=== PATIENT | female | born 1975 | race African-American/Black ===

== ENCOUNTER 2016-03-15 11:28 | Emergency (ER) | payer MEDICAID, SELFPAY ==
[~2016-03-15] VITALS: Ht 160 cm; Wt 81.6 kg
[~2016-03-15 11:28] MED LIST: AMOXICILLIN500 MG ORAL; IBUPROFEN600 MG ORAL; MAGNESIUM CITR296 M1 PO
[2016-03-15] MEDS ORDERED: NKM (11:36)
[2016-03-15 11:45] VITALS: BP 129/82
[2016-03-15] MEDS ORDERED: Methocarbamol 750mg tab ORAL ONE (12:45)
[2016-03-15] MEDS ORDERED: ROBAXIN-750750 MG PO (12:47)
[2016-03-15] MEDS ORDERED: IBUPROFEN600 MG ORAL (12:47)
[2016-03-15 12:57] LABS: APPEARANCE,URINE SLIGHTLY CLOUDY; KETONES,URINE 2+ (NEGATIVE); LEUKOCYTE ESTERASE ,URINE 2+ (NEGATIVE); NITRITE,URINE NEGATIVE (NEGATIVE); PH,URINE 6.5 (4.5-8.0); PROTEIN,URINE NEGATIVE (NEGATIVE); UROBILINOGEN,URINE NORMAL MG/DL (0.0-1.0)
--- NOTE | 2016-03-15 13:07 | Emergency Room Report ---
History of Present Illness General Chief Complaint: Lower Back Pain or Injury Source: Patient Present Illness HPI 40 YO F with right lower back pain since last night. Pain is constant, shrap, 5/ 10, non radiating. No assoc fever/chills, urinary complaints, abd pain, nausea/ vomiting, diarrhea, sick contacts. No history of renal stones. S/p cholecystectomy in distant past. No other PMHx. Took OTC meds with relief. Allergies: Coded Allergies: NO KNOWN DRUG ALLERGIES (Unverified Allergy, Unknown, 04/08/14) Patient History Past Medical History: none Past Surgical History: david Pertinent Family History: none Social History: Denies: alcohol use, drug use, smoking Last Menstrual Period: 02/13/17 Now: No Immunizations: UTD Reviewed Nursing Documentation: PMH: Agreed, PSxH: Agreed Nursing Documentation-PMH Past Medical History: No History, Except For Hx Cardiac Problems: Yes - murmur Review of Systems All Other Systems: negative except mentioned in HPI Physical Exam Vital Signs Date Time Temp Pulse Resp B/P Pulse Ox O2 Delivery O2 Flow Rate FiO2 03/15/16 11:29 98.1 63 18 127/76 98 Room Air Sp02 EP Interpretation: reviewed, normal General Appearance: normal inspection, well appearing, no apparent distress, alert Head: normocephalic, atraumatic ENT: normal ENT inspection, hearing grossly normal, normal voice Neck: normal inspection, full range of motion, supple, no bony tend Respiratory: normal inspection, lungs clear, normal breath sounds, no respiratory distress, no retraction, no wheezing Cardiovascular #1: regular rate, rhythm, no edema Gastrointestinal: normal inspection, normal bowel sounds, non tender, soft, no guarding, no hernia Genitourinary: no CVA tenderness Musculoskeletal: normal inspection, back normal, normal range of motion, non- tender, pelvis stable, Kymberly's Sign negative, other - Mild right lower back para vertebral spasm/tightening, ttp Neurologic: normal inspection, alert, oriented x3, responsive, medical office representative III-XII nml as tested, motor strength/tone normal, speech normal Psychiatric: normal inspection, judgement/insight normal, mood/affect normal Skin: normal inspection, normal color, no rash Medical Decision Making Diagnostic Impression: Primary Impression: Low back pain Qualified Codes: M54.5 - Low back pain ER Course 40 YO F with right lower back pain worse with movement, lying flat. Denies assoc lower extremity weakness, urinary/fecal incontinence, fever/chills , dysuria, history of IVDU or malignancy. A: low suspicion for cord compression given well appearance, mild right paravertebral ttp, no focal neuro deficits, absence of midline ttp/masses and pain worse with movement with known exacerbating activity UA negative for UTI, blood. Unlikely pyelo, renal stone Improved with Ibuprofen/Robaxin DC with Rx for same Last Vital Signs Date Time Temp Pulse Resp B/P Pulse Ox O2 Delivery O2 Flow Rate FiO2 03/15/16 11:45 98.5 70 12 129/82 99 Room Air Status: improved Disposition: HOME, SELF-CARE Condition: Improved Scripts Ibuprofen* (MOTRIN*) 600 Mg Tablet 800 MG ORAL THREE TIMES A DAY, #30 TAB 0 Refills Prov: AMA CORNEJO M.D. 03/15/16 Methocarbamol* (ROBAXIN-750*) 750 Mg Tablet 750 MG PO TID, #30 TAB 0 Refills Prov: AMA CORNEJO M.D. 03/15/16 Referrals: [facility]ERR[facility] (PCP) Patient Instructions: Lumbosacral Strain Additional Instructions: - Take ibuprofen with robaxin as needed for lower back pain - Also try combination of heat/ice as needed for pain - Followup with your doctor in 2-3 days AMA CORNEJO M.D. Mar 15, 2016 13:07
[2016-03-15 13:12] VITALS: BP 124/54
[2016-03-15 13:14] VITALS: BP 124/54
[2016-03-15 13:34] LABS: BACTERIA,URINE FEW /HPF; SQUAMOUS EPITHELIAL CELL,UR MANY /LPF (NONE/OCC)
== END 2016-03-15 13:14 | disposition home or self-care (01) ==
LOC: EMR 12:07
DX: M54.5 Low back pain (principal)
CPT/HCPCS: 81001; 81025; 99284

== ENCOUNTER 2019-04-10 19:16 | Emergency (ER) | payer MEDICAID ==
[~2019-04-10] VITALS: Ht 160 cm; Wt 86.2 kg
[~2019-04-10 19:16] MED LIST changes: +NKM; +ROBAXIN-750750 MG PO
--- NOTE | 2019-04-10 19:30 | NUR ---
ED Nurse Note: Pt walked in from home c/o chest tightness and back pain since this morning. Denies n/v/diarrhea. Respirations even and unlabored on room air. Vitals stable as documented.
[2019-04-10 19:48] VITALS: BP 142/76
--- NOTE | 2019-04-10 20:09 | Emergency Room Report ---
History of Present Illness General Chief Complaint: Chest Pain Source: Patient Present Illness HPI Disclaimer: Please note that this report is being documented using [employer] technology. This can lead to erroneous entry secondary to incorrect interpretation by the dictating instrument. HPI: 43-year-old female with no reported medical presents for evaluation of chest tightness. Symptoms began this morning. Yesterday she was moving and are more in her bedroom when she noticed some upper back pain and stiffness. This morning she awoke with a diffuse pressure sensation around her entire chest. It is mild and does not describe it as a pain but rather just as a tightness. She feels like she cannot take a full deep breath. Denies any cough but notes a little nasal congestion and sore throat. Denies fever or chills. Denies abdominal pain, vomiting or fever. No prior history of chest pain or similar symptoms. No family history. Non-smoker. Pain is reproducible and worse with bending and twisting motion and better with rest. Was taking some ibuprofen and a Amrit aspirin without relief. PMH: Denies PSH: Tubal ligation, kidney stone removal Allergies: Denies Social Hx: Denies Allergies: Coded Allergies: NO KNOWN DRUG ALLERGIES (Unverified Allergy, Unknown, 04/08/14) Patient History Last Menstrual Period: 03/13/19 Now: No Nursing Documentation-PMH Past Medical History: No History, Except For Hx Cardiac Problems: Yes - murmur Review of Systems All Other Systems: negative except mentioned in HPI Physical Exam Vital Signs Date Time Temp Pulse Resp B/P (MAP) Pulse Ox O2 Delivery O2 Flow Rate FiO2 04/10/19 19:23 98.2 74 20 142/76 (98) 99 Room Air General: Awake and alert, no acute distress HEENT: NC/AT. EOMI. moist mucous membranes. Neck: Supple, trachea midline Chest Wall: Tender to palpation diffusely over the anterior and posterior portion of the chest wall without crepitus or deformity. Cardiovascular: RRR. S1 and S2 normal. No murmur appreciated Resp: Normal work of breathing. No cough, wheezing or crackles appreciated Abdomen: Abdomen is soft, nondistended. Nontender Skin: Intact. No abrasions, laceration or rash over the exposed skin MSK: Normal tone and bulk. Moving all extremities. No obvious deformity. Neuro: Awake and alert. Mentating appropriately. Back/Spine: No midline tenderness in the cervical, thoracic or lumbosacral spine. There is moderate paraspinal tenderness in the cervical and upper thoracic spine. This is bilateral. No tenderness in the lower paraspinal regions Medical Decision Making Diagnostic Impression: Primary Impression: Chest pain Additional Impression: Back strain ER Course 43-year-old female presents for evaluation of chest pressure beginning this morning as well as back pain since yesterday. Differential includes but is not limited to pleurisy, URI, viral syndrome, ACS, angina, bronchitis, pneumonia, muscle spasm/strain. Patient is well-appearing with stable vital signs and has reproducible chest wall tenderness. Most consistent with muscular strain and spasm as well as musculoskeletal chest pain however will rule out cardiac chest pain by obtaining cardiac enzymes, chest x-ray and EKG. otherwise, will treat with Toradol, Robaxin, lidocaine patch. Pulse ox is 10 percent, no tachycardia. By PERC rules patient is very low risk for PE. Laboratory Tests Test 04/10/19 19:42 White Blood Count 9.6 K/UL (4.8-10.8) Red Blood Count 4.25 M/UL (4.20-5.40) Hemoglobin 13.0 G/DL (12.0-16.0) Hematocrit 41.0 % (37.0-47.0) Mean Corpuscular Volume 96 FL (80-99) Mean Corpuscular Hemoglobin 30.7 PG (27.0-31.0) Mean Corpuscular Hemoglobin Concent 31.8 G/DL (32.0-36.0) L Red Cell Distribution Width 12.2 % (11.6-14.8) Platelet Count 282 K/UL (150-450) Mean Platelet Volume 9.5 FL (6.5-10.1) Neutrophils (%) (Auto) 65.0 % (45.0-75.0) Lymphocytes (%) (Auto) 27.8 % (20.0-45.0) Monocytes (%) (Auto) 5.3 % (1.0-10.0) Eosinophils (%) (Auto) 0.7 % (0.0-3.0) Basophils (%) (Auto) 1.2 % (0.0-2.0) Sodium Level 142 MMOL/L (136-145) Potassium Level 3.4 MMOL/L (3.5-5.1) L Chloride Level 106 MMOL/L (98-107) Carbon Dioxide Level 28 MMOL/L (21-32) Anion Gap 8 mmol/L (5-15) Blood Urea Nitrogen 11 mg/dL (7-18) Creatinine 0.9 MG/DL (0.55-1.30) Estimate Glomerular Filtration Rate > 60 mL/min (>60) Glucose Level 95 MG/DL (74-106) Calcium Level 9.2 MG/DL (8.5-10.1) Total Bilirubin 0.5 MG/DL (0.2-1.0) Aspartate Amino Transferase (AST) 19 U/L (15-37) Alanine Aminotransferase (ALT) 27 U/L (12-78) Alkaline Phosphatase 69 U/L (46-116) Troponin I 0.000 ng/mL (0.000-0.056) Pro-B-Type Natriuretic Peptide 33 pg/mL (0-125) Total Protein 7.7 G/DL (6.4-8.2) Albumin 3.5 G/DL (3.4-5.0) Globulin 4.2 g/dL Albumin/Globulin Ratio 0.8 (1.0-2.7) L EKG Diagnostic Results EKG Time: 19:41 Rate: normal Rhythm: NSR ST Segments: no acute changes Other Impression Sinus rhythm, normal axis, normal intervals, no ST segment changes. Rhythm Strip Diag. Results Rhythm Strip Time: 19:41 EP Interpretation: yes Rate: 70s Rhythm: NSR, no PVC's, no ectopy Reevaluation Time: 21:38 Last Vital Signs Date Time Temp Pulse Resp B/P (MAP) Pulse Ox O2 Delivery O2 Flow Rate FiO2 04/10/19 19:48 74 20 Room Air 04/10/19 19:48 98.2 142/76 99 Status: unchanged Reevaluation Impression EKG nonischemic. Chest x-ray shows a normal cardiac silhouette without evidence of infiltrate. Labs within normal limits. Troponin negative. Again, the patient's pain is reproducible and I believe musculoskeletal nature. She may be having an early upper respiratory infection but at this time appears well with stable vital signs. Do not believe she requires further testing or imaging at this time. She can be followed up on an outpatient basis. We will prescribe her lidocaine patches, Robaxin for the back and continue NSAIDs. Advised to return to the emergency department if her symptoms worsen or fail to improve. She will follow-up with her PMD. She understands and agrees with treatment plan was discharged home. Disposition: HOME, SELF-CARE Condition: Stable Scripts Lidocaine Patch* (Lidoderm Patch*) 1 Each Adh..patch 1 PATCH TOPIC DAILY, #7 PATCH 0 Refills Patch(es) may remain in place for up to 12 hours in any 24-hour period. Prov: Saad Pereira MD 04/10/19 Methocarbamol* (ROBAXIN-750*) 750 Mg Tablet 750 MG PO TID, #30 TAB 0 Refills Prov: Saad Pereira MD 04/10/19 Ibuprofen* (MOTRIN*) 600 Mg Tablet 600 MG ORAL Q8H PRN for For Pain, #30 TAB Prov: Saad Pereira MD 04/10/19 Saad Pereira MD Apr 10, 2019 20:09
[2019-04-10] MEDS ORDERED: Ketorolac 30mg Inj ONE (20:12)
[2019-04-10] MEDS ORDERED: Methocarbamol 750mg tab ORAL ONE (20:15)
[2019-04-10] MEDS ORDERED: Ketorolac 30mg Inj IV ONE (20:15)
[2019-04-10 20:47] LABS: BASOPHILS % (AUTO) 1.2 % (0.0-2.0); EOSINOPHILS % (AUTO) 0.7 % (0.0-3.0); LYMPHOCYTES % (AUTO) 27.8 % (20.0-45.0); MEAN CORPUSCULAR VOLUME 96 FL (80-99); MONOCYTES % (AUTO) 5.3 % (1.0-10.0); PLATELET COUNT 282 K/UL (150-450); RED BLOOD COUNT 4.25 M/UL (4.20-5.40); RED CELL DISTRIBUTION WIDTH 12.2 % (11.6-14.8); WHITE BLOOD COUNT 9.6 K/UL (4.8-10.8)
[2019-04-10 20:58] LABS: ANION GAP 8 mmol/L (5-15); BLOOD UREA NITROGEN 11 mg/dL (7-18); CALCIUM 9.2 MG/DL (8.5-10.1); CARBON DIOXIDE 28 MMOL/L (21-32); CHLORIDE 106 MMOL/L (98-107); CREATININE 0.9 MG/DL (0.55-1.30); POTASSIUM 3.4 MMOL/L (3.5-5.1); SODIUM 142 MMOL/L (136-145)
[2019-04-10 21:09] LABS: ALANINE AMINOTRANSFERASE 27 U/L (12-78); ALBUMIN 3.5 G/DL (3.4-5.0); ALBUMIN/GLOBULIN RATIO 0.8 (1.0-2.7); ALKALINE PHOSPHATASE 69 U/L (46-116); ASPARTATE AMINO TRANSFERASE 19 U/L (15-37); BILIRUBIN,TOTAL 0.5 MG/DL (0.2-1.0)
[2019-04-10] MEDS ORDERED: IBUPROFEN600 MG ORAL (21:19)
[2019-04-10] MEDS ORDERED: ROBAXIN-750750 MG PO (21:19)
[2019-04-10] MEDS ORDERED: LIDODERM700 M1 TOPIC (21:19)
[2019-04-10 22:00] VITALS: BP 139/74
--- NOTE | 2019-04-10 22:00 | NUR ---
ER DISCHARGE NOTE:Patient is cleared to be discharged per ERMD, pt is aox4, on room air, with stable vital signs. pt was given dc and prescription instructions, pt was able to verbalize understanding, pt id band and iv site removed without complications. pt is able to ambulate with steady gait. pt took all belongings.
--- NOTE | 2019-04-11 14:09 | Diagnostic Imaging Report ---
Indication: Chest pain Comparison: 07/04/2010 A single view chest radiograph was obtained. Findings: Cardiomediastinal appearance is within normal limits for age. The lungs are clear. Pulmonary vascularity is appropriate. The diaphragmatic contour is smooth and costophrenic angles are sharp. No pleural effusions are identified. The bones are unremarkable. Impression: No acute findings
== END 2019-04-10 22:00 | disposition home or self-care (01) ==
LOC: EMR 20:17
DX: R07.9 Chest pain, unspecified (principal); S39.012A Strain of muscle, fascia and tendon of lower back, initial encounter; X58.XXXA Exposure to other specified factors, initial encounter; Y92.9 Unspecified place or not applicable; Z87.442 Personal history of urinary calculi
CPT/HCPCS: 36415; 71045; 80053; 83880; 84484; 85025; 93005; 96374; J1885; Z7502; 99284